=== PATIENT | female | born 1965 | race Caucasian/White ===

== ENCOUNTER 2017-01-04 20:51 | Emergency (ER) | payer BC ==
[~2017-01-04] VITALS: Ht 172.7 cm; Wt 63.5 kg
--- NOTE | ~2017-01-04 | EKG ---
PATIENT: FLOWER ROMERO UNIT #: [id number] Ventricular Rate: 68 BPM Atrial Rate: 68 BPM P-R Interval: 130 ms QRS Duration: 88 ms Q-T Interval: 386 ms QTC Calculation(Bezet): 410 ms P [place]: 39 degrees Calculated R [place]: 44 degrees Calculated T [place]: 44 degrees Diagnosis Line: Normal sinus rhythm Diagnosis Line: Normal ECG Diagnosis Line: No previous ECGs available Diagnosis Line: Confirmed by HI SIERRA MD ([id number]) on Diagnosis Line: 01/06/2017 8:56:11 AM INTERPRETING MD: MARIELA YBARRA
--- NOTE | ~2017-01-04 | CR72 ---
[facility] A Service of [facility] RADIOLOGY TEXT RESULTS PATIENT: FLOWER ROMERO LOCATION: [facility] : 63 UNIT #: [id number] AGE: [address]: Andrea Nguyen MD SEX: F ORDER DR: [id number] [facility] [address] [place], [place] [address] [id number] MR#: [id number] Acc #: [id number] NAME: FLOWER ROMERO : 1965 SEX: F STUDY DATE/TIME: 01/04/2017 21:19 UNIT: [facility] ROOM: STUDY DESCRIPTION: CR Chest Single View Portable Attending Physician: Andrea Nguyen M.D. Ordering Physician: Andrea Nguyen M.D. Primary Care Physician: No Primary Care Physician MEDICAL IMAGING REPORT This report is preliminary unless electronic signature is present EXAM Frontal chest 01/04/2017. INDICATIONS Chest pain and epigastric pain in a 51-year-old female. Symptoms began today. Short of air. TECHNIQUE Frontal chest performed. COMPARISON No comparisons. FINDINGS A single AP portable view of the chest shows both lungs to be clear. The heart is normal in size. The mediastinal contour is normal. No significant bone abnormalities are seen. IMPRESSION Normal portable chest. Dictated by... Arvind Orozco M.D. THIS IS AN ELECTRONICALLY VERIFIED REPORT Arvind Orozco M.D. at 01/05/2017 10:06 PM Tram TD: 01/05/2017 14:26 JOB #: [id number] MEDICAL IMAGING REPORT Page 1 of 1 COPY
[2017-01-04 21:38] LABS: BASOPHIL# 0.1 X10e3 (0-0.3); BASOPHIL% 0.9 % (0-2.5); EOSINOPHIL# 0.2 X10e3 (0-0.7); EOSINOPHIL% 3.5 % (0.0-7.0); HEMATOCRIT 32.1 % (35.0-45.0); HEMOGLOBIN 11.1 gm/dL (12.0-16.0); LYMPHOCYTE# 4.1 X10e3 (1.0-3.5); MEAN CELL VOLUME 90.4 FL (83-96); MEAN CORPUSCULAR HEMOGLOBIN 31.3 PG (28-34); MEAN CORPUSCULAR HGB CONC 34.6 g/dL (30-36); MEAN PLATELET VOLUME 7.7 FL (6.5-11.5); MONOCYTE# 0.4 X10e3 (0-1.0); MONOCYTE% 6.2 % (3.0-12.0); NEUTROPHIL% 29.4 % (40-75); PLATELET COUNT 232 X10e3 (140-420); RED BLOOD COUNT 3.56 X10e (3.90-5.30); RED CELL DISTRIBUTION WIDTH 13.5 % (11.0-15.5); WHITE BLOOD COUNT 6.8 X10e3 (4.0-10.5)
[2017-01-04 21:41] LABS: DIFF IND YES
[2017-01-04 21:52] LABS: POC - CKMB <1.0 ng/mL (0.0-7.9); POC - TROPONIN <0.05 ng/mL (<=0.05)
[2017-01-04 22:03] LABS: ALBUMIN SERUM 3.9 g/dL (3.5-5.0); ALKALINE PHOSPHATASE 89 U/L (32-92); ALT (SGPT) 26 U/L (10-40); ANISOCYTOSIS SL; AST (SGOT) 40 U/L (10-42); BILIRUBIN, DIRECT 0.1 mg/dL (0.0-0.2); BILIRUBIN,INDIRECT 0.4 mg/dL (0.0-0.9); BILIRUBIN,TOTAL 0.5 mg/dL (0.2-2.0); BLOOD UREA NITROGEN 7 mg/dL (9-23); CARBON DIOXIDE 26 mmol/L (22-31); CHLORIDE 103 mmol/L (100-111); GLOM FILT RATE Estimated 64.8 mL/min (>60); GLUCOSE FASTING 111 mg/dL (70-110); PLATELET ESTIMATE NORMAL (NORMAL); POTASSIUM 3.5 mmol/L (3.5-5.1); PROTEIN TOTAL SERUM 6.7 g/dL (6.0-8.3); SODIUM 136 mmol/L (135-145)
[2017-01-04 22:04] LABS: ALCOHOL BLOOD <5 mg/dL (0)
[2017-01-04 22:34] LABS: POC - CKMB <1.0 ng/mL (0.0-7.9); POC - TROPONIN <0.05 ng/mL (<=0.05)
== END 2017-01-04 23:07 | disposition home or self-care (01) ==
LOC: CED 20:51
PROVIDERS: Emergency Medicine
DX: R10.13 Epigastric pain (principal); F17.200 Nicotine dependence, unspecified, uncomplicated; Z88.2 Allergy status to sulfonamides; Z90.710 Acquired absence of both cervix and uterus
CPT/HCPCS: 36415; 71010; 80048; 80076; 82553; 84484; 85025; 93005; 96361; 96374; 99285; C9113; G0480